=== PATIENT | female | born 1940 | race Caucasian/White ===

== ENCOUNTER 2019-07-29 07:22 | Inpatient (IN) ==
[2019-07-29] MEDS ORDERED: 0.9 % Sodium Chloride 1,000 ML ONE ×3 (08:23→13:27)
[2019-07-29 08:39] LABS: INR 2.4; Prothrombin Time 27.7 Seconds (9.4-12.1)
[2019-07-29] MEDS ORDERED: Ondansetron 4 MG/2 ML VIAL ONE (10:54)
[2019-07-29] MEDS ORDERED: Heparin 1,000 UNITS/500 mL 1,000 ML ONE (10:57)
[2019-07-29] MEDS ORDERED: *HR* Heparin 10,000 UNIT/10 ML VIAL ONE (10:57)
[2019-07-29] MEDS ORDERED: Heparin 1,000 UNITS/500 mL 500 ML ONE (11:02)
[2019-07-29] MEDS ORDERED: *HR* FentaNYL (PF) 100 MCG/2 ML VIAL ONE (11:21)
[2019-07-29] MEDS ORDERED: *HR* Promethazine 25 MG/ML VIAL IVP PRN (11:28)
[2019-07-29] MEDS ORDERED: *HR* OxyCODONE Immed Rel 5 MG TABLET PO PRN (11:28)
[2019-07-29] MEDS ORDERED: Ondansetron 4 MG/2 ML VIAL IVP ONE (11:28)
[2019-07-29] MEDS ORDERED: *HR* Metoprolol 5 MG/5 ML VIAL IVP PRN (11:28)
[2019-07-29] MEDS ORDERED: *HR* FentaNYL (PF) 100 MCG/2 ML VIAL IVP PRN (11:28)
[2019-07-29] MEDS ORDERED: Albuterol 2.5 MG/3 ML NEBULIZER IH PRN (11:28)
[2019-07-29] MEDS ORDERED: Protamine Sulfate 50 MG/5 ML VIAL IVP ONE (13:05)
[2019-07-29] MEDS ORDERED: Naloxone 0.4 MG/ML INJ IVP PRN (13:14)
[2019-07-29] MEDS ORDERED: tiZANidine 4 MG TABLET PO PRN (13:20)
[2019-07-29] MEDS ORDERED: NON-FORMULARY MEDICATION 1 EACH EACH (Alendronate Sodium [Fosamax] 70 MG) PO SCH (13:30)
[2019-07-29] MEDS: 0.9 % Sodium Chloride 1,000 ML IVC SCH (14:39)
[2019-07-29] MEDS: hydrALAZINE 25 MG TABLET PO SCH ×2 (16:54→20:16)
[2019-07-29] MEDS ORDERED: *HR* Warfarin 5 MG TABLET PO SCH (18:00)
[2019-07-29] MEDS: *HR* Metformin 500 MG TABLET PO SCH (18:27)
[2019-07-29] MEDS: Metoprolol 100 MG TABLET PO SCH (20:17)
[2019-07-29] MEDS ORDERED: RED YEAST RICE 600 MG PO SCH (21:00)
[2019-07-30 02:25] LABS: Hematocrit 30.7 % (35.3-44.9); Hemoglobin 9.9 g/dL (11.5-15.4); Immature Granulocytes % 0.6 % (0-4); Lymphocytes # 0.5 K/mcL (0.6-4.6); Lymphocytes % 9.9 %; Mean Corpuscular HGB Conc 32.2 g/dL (31.6-35.5); Mean Corpuscular Hemoglobin 28.1 pg (28.0-33.3); Mean Corpuscular Volume 87.2 fL (83.0-100.0); Mean Platelet Volume 10.1 fL (9.4-12.4); Monocytes # 0.3 K/mcL (0.0-1.3); Monocytes % 6.5 %; Platelet Count 276 K/mcL (140-400); Red Blood Count 3.52 M/mcL (3.82-4.97); Red Cell Distribution Width 15.9 % (11.5-14.5); White Blood Count 4.8 K/mcL (4.3-11.1)
[2019-07-30 02:28] LABS: INR 2.3
[2019-07-30 02:42] LABS: BUN/Creatinine Ratio 18 (6-26); Blood Urea Nitrogen 16 mg/dL (8-23); Calcium 8.4 mg/dL (8.6-10.3); Carbon Dioxide 27 mEq/L (23-29); Chloride 105 mEq/L (98-107); Glucose 140 mg/dL (70-105); Osmolality,Calculated 291 (280-300); Potassium 3.7 mEq/L (3.5-5.1); Sodium 139 mEq/L (136-145); eGFR For African Americans > 60 (> 60); eGFR For Non-African Americans > 60 (> 60)
[2019-07-30] MEDS ORDERED: *HR* Atropine Sulfate 1 MG/10 ML SYRINGE ONE (03:01)
[2019-07-30] MEDS: 0.9 % Sodium Chloride 1,000 ML IVC SCH (06:36)
[2019-07-30] MEDS: hydrALAZINE 25 MG TABLET PO SCH (08:26)
[2019-07-30] MEDS: Metoprolol 100 MG TABLET PO SCH (08:27)
[2019-07-30] MEDS: *HR* Metformin 500 MG TABLET PO SCH (08:27)
[2019-07-30 08:34] VITALS: BP 128/59
[2019-07-30] MEDS ORDERED: Lisinopril 20 MG TABLET PO SCH (09:00)
[2019-07-30] MEDS ORDERED: amLODIPine 5 MG TABLET PO SCH (09:00)
[2019-07-30] MEDS ORDERED: Vitamin E 200 UNIT (90MG) CAPSULE PO SCH (09:00)
[2019-07-30] MEDS ORDERED: Aspirin Enteric Coated 81 MG Tablet PO SCH (09:00)
[2019-07-30] MEDS ORDERED: Cyanocobalamin (B-12) 1,000 MCG TABLET PO SCH (09:00)
[2019-07-30] MEDS ORDERED: Cholecalciferol (D-3) 1,000 UNIT (25MCG) TABLET PO SCH (09:00)
[2019-07-30] MEDS ORDERED: Loratadine 10 MG TABLET PO SCH (09:00)
[2019-07-30 09:13] LABS: Hemoglobin 9.4 g/dL (11.5-15.4)
[2019-07-30] MEDS ORDERED: Ropivacaine/PF 0.5% 30 ML VIAL ONE (10:52)
[2019-07-30] MEDS ORDERED: EPHEDrine 50 MG/ML VIAL IVP ONE (11:25)
[2019-07-30] MEDS ORDERED: Lidocaine -MPF 4% 5 ML AMPUL INFILT ONE (11:25)
[2019-07-30] MEDS ORDERED: *HR* Propofol 200 MG/20 ML VIAL IVP ONE (11:25)
[2019-07-30] MEDS ORDERED: *HR* Succinylcholine 200 MG/10 ML VIAL IVP ONE (11:25)
[2019-07-30] MEDS ORDERED: Ondansetron 4 MG/2 ML VIAL IVP ONE (11:25)
[2019-07-30] MEDS ORDERED: *HR* Warfarin 2.5 MG TABLET PO SCH (18:00)
[2019-07-30] MEDS ORDERED: Latanoprost 2.5 ML BOTTLE BOTH EYES SCH (21:00)
== END 2019-07-30 11:26 | disposition home or self-care (01) | DRG 274 ==
LOC: INVDIALAB 07:22 → 2NNU 14:22
PROVIDERS: ADMIT Internal Medicine Clinical Cardiac Electrophysiology; ATTEND Internal Medicine Clinical Cardiac Electrophysiology

== ENCOUNTER 2021-11-27 10:35 | Inpatient (IN) ==
[2021-11-27] MEDS ORDERED: Naloxone 0.4 MG/ML INJ IVP PRN (13:02)
[2021-11-27] MEDS ORDERED: Ondansetron 4 MG/2 ML VIAL IVP PRN (13:02)
[2021-11-27] MEDS ORDERED: Isovue-370 500 ML BOTTLE IVP ONE (14:05)
[2021-11-27] MEDS: lisinopriL 20 MG TABLET PO SCH (14:41)
[2021-11-27] MEDS: Metoprolol 100 MG TABLET PO SCH ×2 (14:41→22:34)
[2021-11-27] MEDS: hydrALAZINE 25 MG TABLET PO SCH ×2 (14:42→20:50)
[2021-11-27] MEDS: Aspirin Enteric Coated 325 MG Tablet PO SCH (14:43)
[2021-11-27] MEDS ORDERED: Perflutren Lipid Microsphere 1.3 ML in 0.9 % Sodium Chloride 8.7 ML IVP PRN (16:04)
[2021-11-27] MEDS ORDERED: D5% in Water 1,000 ML IVC PRN (16:23)
[2021-11-27] MEDS ORDERED: *HR* Dextrose 50 % in Water (Syg) 50 ML SYRINGE IVP PRN (16:23)
[2021-11-27] MEDS ORDERED: Dextrose 4 GM Chewable Tablets PO PRN ×2 (16:23)
[2021-11-27 17:48] LABS: Estimated Average Glucose 117 mg/dl; Hemoglobin A1C 5.7 %
[2021-11-27] MEDS: Furosemide 20 MG/2 ML VIAL IVP SCH (18:10)
[2021-11-27] MEDS: Insulin LISPRO 300 UNITS/3 ML VIAL SUBQ SCH (18:14)
[2021-11-27] MEDS: Latanoprost 2.5 ML BOTTLE BOTH EYES SCH (20:50)
[2021-11-28] MEDS: Acetaminophen 325 MG TABLET PO PRN (03:00)
[2021-11-28 03:09] LABS: Basophils % 0.1 %; Eosinophils # 0.1 K/mcL (0.0-0.6); Eosinophils % 1.1 %; Hematocrit 32.2 % (35.3-44.9); Hemoglobin 10.5 g/dL (11.5-15.4); Immature Granulocytes % 0.4 % (0-4); Lymphocytes # 0.5 K/mcL (0.6-4.6); Lymphocytes % 6.9 %; Mean Corpuscular HGB Conc 32.6 g/dL (31.6-35.5); Mean Corpuscular Hemoglobin 29.4 pg (28.0-33.3); Mean Corpuscular Volume 90.2 fL (83.0-100.0); Mean Platelet Volume 9.6 fL (9.4-12.4); Monocytes # 0.7 K/mcL (0.0-1.3); Neutrophils # 6.2 K/mcL (1.6-8.9); Platelet Count 288 K/mcL (140-400); Red Blood Count 3.57 M/mcL (3.82-4.97); Red Cell Distribution Width 14.6 % (11.5-14.5); Segmented Neutrophils % 82.5 %; White Blood Count 7.5 K/mcL (4.3-11.1)
[2021-11-28 03:34] LABS: Calcium 9.3 mg/dL (8.6-10.3); Potassium 3.4 mEq/L (3.5-5.1)
[2021-11-28] MEDS: *HR* Enoxaparin 40 MG/0.4 ML SYRINGE SQ SCH (06:30)
[2021-11-28] MEDS: Gabapentin 300 MG CAPSULE PO SCH ×2 (06:30→08:04)
[2021-11-28] MEDS: Insulin LISPRO 300 UNITS/3 ML VIAL SUBQ SCH ×3 (08:02→16:34)
[2021-11-28] MEDS: Furosemide 20 MG/2 ML VIAL IVP SCH (08:02)
[2021-11-28] MEDS: lisinopriL 20 MG TABLET PO SCH (08:03)
[2021-11-28] MEDS: hydrALAZINE 25 MG TABLET PO SCH ×3 (08:03→20:06)
[2021-11-28] MEDS: Loratadine 10 MG TABLET PO SCH (08:03)
[2021-11-28] MEDS: Aspirin Enteric Coated 325 MG Tablet PO SCH (08:03)
[2021-11-28] MEDS: Metoprolol 100 MG TABLET PO SCH (08:03)
[2021-11-28] MEDS: Gabapentin 100 MG CAPSULE PO SCH ×2 (14:58→20:06)
[2021-11-28] MEDS: carvediloL 25 MG TABLET PO SCH (17:07)
[2021-11-28] MEDS: Latanoprost 2.5 ML BOTTLE BOTH EYES SCH (20:07)
[2021-11-29 03:43] LABS: Basophils % 0.1 %; Hematocrit 31.5 % (35.3-44.9); Hemoglobin 10.1 g/dL (11.5-15.4); Immature Granulocytes % 0.6 % (0-4); Lymphocytes # 0.5 K/mcL (0.6-4.6); Lymphocytes % 5.2 %; Mean Corpuscular HGB Conc 32.1 g/dL (31.6-35.5); Mean Corpuscular Hemoglobin 29.1 pg (28.0-33.3); Mean Corpuscular Volume 90.8 fL (83.0-100.0); Mean Platelet Volume 10.2 fL (9.4-12.4); Monocytes # 0.8 K/mcL (0.0-1.3); Monocytes % 9.3 %; Neutrophils # 7.6 K/mcL (1.6-8.9); Platelet Count 295 K/mcL (140-400); Red Blood Count 3.47 M/mcL (3.82-4.97); Red Cell Distribution Width 14.7 % (11.5-14.5); Segmented Neutrophils % 84.8 %
[2021-11-29 03:52] LABS: Calcium 8.8 mg/dL (8.6-10.3); Magnesium 1.2 mg/dL (1.6-2.6); Phosphorous 5.4 mg/dL (2.7-4.5); Potassium 4.1 mEq/L (3.5-5.1)
[2021-11-29] MEDS: *HR* Enoxaparin 40 MG/0.4 ML SYRINGE SQ SCH (05:26)
[2021-11-29] MEDS: Acetaminophen 325 MG TABLET PO PRN ×2 (05:26→21:51)
[2021-11-29] MEDS: Insulin LISPRO 300 UNITS/3 ML VIAL SUBQ SCH ×3 (07:18→15:38)
[2021-11-29] MEDS ORDERED: 0.9 % Sodium Chloride 500 ML IVC ONE ×2 (07:40→09:46)
[2021-11-29] MEDS: hydrALAZINE 25 MG TABLET PO SCH (08:03)
[2021-11-29] MEDS: Aspirin Enteric Coated 325 MG Tablet PO SCH (08:03)
[2021-11-29] MEDS: carvediloL 25 MG TABLET PO SCH ×2 (08:03→16:13)
[2021-11-29] MEDS: Loratadine 10 MG TABLET PO SCH (08:03)
[2021-11-29] MEDS: Gabapentin 100 MG CAPSULE PO SCH (08:03)
[2021-11-29] MEDS: amLODIPine 5 MG TABLET PO SCH (08:03)
[2021-11-29] MEDS ORDERED: Acetaminophen 325 MG TABLET PO ONE (09:43)
[2021-11-29] MEDS: 0.9 % Sodium Chloride 1,000 ML IVC SCH ×2 (12:33→20:50)
[2021-11-29] MEDS: Latanoprost 2.5 ML BOTTLE BOTH EYES SCH (20:09)
[2021-11-29] MEDS: *HR* Metoprolol 5 MG/5 ML VIAL IVP PRN (21:41)
[2021-11-29] MEDS ORDERED: *HR* Metoprolol 5 MG/5 ML VIAL IVP ONE (22:06)
[2021-11-29 23:48] LABS: Calcium 8.3 mg/dL (8.6-10.3); Magnesium 1.7 mg/dL (1.6-2.6); Phosphorous 4.4 mg/dL (2.7-4.5); Potassium 3.9 mEq/L (3.5-5.1)
[2021-11-30] MEDS ORDERED: Furosemide 20 MG/2 ML VIAL IVP ONE (00:02)
[2021-11-30] MEDS ORDERED: Magnesium Sulfate 1 GM/102 ML PIGGYBACK IVPB ONE (00:02)
[2021-11-30 03:08] LABS: Basophils % 0.1 %; Eosinophils % 0.1 %; Hematocrit 29.1 % (35.3-44.9); Hemoglobin 9.4 g/dL (11.5-15.4); Immature Granulocytes % 0.7 % (0-4); Lymphocytes # 0.6 K/mcL (0.6-4.6); Lymphocytes % 4.3 %; Mean Corpuscular HGB Conc 32.3 g/dL (31.6-35.5); Mean Corpuscular Hemoglobin 29.6 pg (28.0-33.3); Mean Corpuscular Volume 91.5 fL (83.0-100.0); Mean Platelet Volume 9.7 fL (9.4-12.4); Monocytes # 1.4 K/mcL (0.0-1.3); Monocytes % 10.6 %; Neutrophils # 11.5 K/mcL (1.6-8.9); Platelet Count 260 K/mcL (140-400); Red Blood Count 3.18 M/mcL (3.82-4.97); Red Cell Distribution Width 14.6 % (11.5-14.5); Segmented Neutrophils % 84.2 %
[2021-11-30 03:10] LABS: White Blood Count 13.6 K/mcL (4.3-11.1)
[2021-11-30 03:28] LABS: Calcium 8.1 mg/dL (8.6-10.3); Phosphorous 4.6 mg/dL (2.7-4.5); Potassium 3.9 mEq/L (3.5-5.1)
[2021-11-30] MEDS: Piperacillin/Tazobactam 3.375 GM in 0.9 % Sodium Chloride Mini Bag 100 ML IVPB SCH ×2 (05:00→15:51)
[2021-11-30] MEDS: *HR* Enoxaparin 30 MG/0.3 ML SYRINGE SQ SCH (05:01)
[2021-11-30] MEDS: Acetaminophen 325 MG TABLET PO PRN ×2 (05:01→08:11)
[2021-11-30 06:04] LABS: Bacteria,Urine Few per hpf (None-Few); Bilirubin,Urine Negative (Negative); Blood,Urine Small (Negative); Budding Yeast,Urine Few per hpf (None Seen); Clarity,Urine Ex.Turbid (Clear); Color,Urine Yellow (Yellow); Glucose,Urine (UA) Normal (Normal); Ketones,Urine Negative (Negative); Leukocyte Esterase,Urine Large (Negative); Mucus,Urine Few per lpf (None-Few); Nitrite,Urine Negative (Negative); Protein,Urine 50 mg/dL (Neg-Trace); Specific Gravity,Urine 1.021 (1.010-1.025); Squamous Epithelial Cell,Urine Few per hpf (None-Few); Urobilinogen,Urine Normal (Normal); WBC,Urine TNTC per hpf (0-3)
[2021-11-30] MEDS: carvediloL 25 MG TABLET PO SCH ×2 (08:10→15:47)
[2021-11-30] MEDS: Aspirin Enteric Coated 325 MG Tablet PO SCH (08:10)
[2021-11-30] MEDS: Loratadine 10 MG TABLET PO SCH (08:11)
[2021-11-30] MEDS: amLODIPine 5 MG TABLET PO SCH (08:11)
[2021-11-30] MEDS: *HR* Metoprolol 5 MG/5 ML VIAL IVP PRN ×2 (08:12→20:12)
[2021-11-30 12:02] LABS: Protein/Creatinine Ratio,Urine 0.81 mg/mg (0.00-0.20); Sodium, Urine 46.9 mEq/L
[2021-11-30] MEDS: Insulin LISPRO 300 UNITS/3 ML VIAL SUBQ SCH ×3 (12:40→15:51)
[2021-11-30 18:27] LABS: Uric Acid 7.1 mg/dL (2.3-7.6)
[2021-11-30] MEDS: Latanoprost 2.5 ML BOTTLE BOTH EYES SCH (20:12)
[2021-12-01] MEDS ORDERED: Melatonin 3 MG TABLET PO PRN (01:33)
[2021-12-01 05:27] LABS: Basophils % 0.2 %; Eosinophils # 0.1 K/mcL (0.0-0.6); Eosinophils % 0.4 %; Immature Granulocytes % 0.8 % (0-4); Lymphocytes # 0.7 K/mcL (0.6-4.6); Lymphocytes % 5.2 %; Mean Corpuscular HGB Conc 32.3 g/dL (31.6-35.5); Mean Corpuscular Hemoglobin 29.1 pg (28.0-33.3); Mean Corpuscular Volume 90.1 fL (83.0-100.0); Mean Platelet Volume 10.2 fL (9.4-12.4); Monocytes % 15.7 %; Platelet Count 270 K/mcL (140-400); Red Blood Count 3.44 M/mcL (3.82-4.97); Red Cell Distribution Width 14.6 % (11.5-14.5); Segmented Neutrophils % 77.7 %; White Blood Count 12.8 K/mcL (4.3-11.1)
[2021-12-01 06:16] LABS: Calcium 8.6 mg/dL (8.6-10.3); Magnesium 2.1 mg/dL (1.6-2.6); Phosphorous 3.2 mg/dL (2.7-4.5); Potassium 3.8 mEq/L (3.5-5.1)
[2021-12-01] MEDS: carvediloL 25 MG TABLET PO SCH ×2 (09:11→17:13)
[2021-12-01] MEDS: Loratadine 10 MG TABLET PO SCH (09:12)
[2021-12-01] MEDS: Aspirin Enteric Coated 325 MG Tablet PO SCH (09:12)
[2021-12-01] MEDS: Insulin LISPRO 300 UNITS/3 ML VIAL SUBQ SCH ×3 (09:13→16:48)
[2021-12-01] MEDS: *HR* Enoxaparin 30 MG/0.3 ML SYRINGE SQ SCH (09:47)
[2021-12-01] MEDS: Piperacillin/Tazobactam 3.375 GM in 0.9 % Sodium Chloride Mini Bag 100 ML IVPB SCH ×3 (09:47→17:05)
[2021-12-01] MEDS: Acetaminophen 325 MG TABLET PO PRN (09:50)
[2021-12-01] MEDS: 0.9 % Sodium Chloride 1,000 ML IVC SCH ×3 (11:00→13:57)
[2021-12-01] MEDS: carvediloL 6.25 MG TABLET PO SCH (17:17)
[2021-12-01] MEDS: Latanoprost 2.5 ML BOTTLE BOTH EYES SCH (21:05)
[2021-12-02] MEDS: Piperacillin/Tazobactam 3.375 GM in 0.9 % Sodium Chloride Mini Bag 100 ML IVPB SCH ×3 (00:48→16:48)
[2021-12-02 01:12] LABS: Basophils % 0.3 %; Eosinophils # 0.2 K/mcL (0.0-0.6); Eosinophils % 3.2 %; Hematocrit 27.2 % (35.3-44.9); Hemoglobin 8.9 g/dL (11.5-15.4); Immature Granulocytes % 0.7 % (0-4); Lymphocytes # 0.6 K/mcL (0.6-4.6); Lymphocytes % 8.3 %; Mean Corpuscular HGB Conc 32.7 g/dL (31.6-35.5); Mean Corpuscular Hemoglobin 30.1 pg (28.0-33.3); Mean Corpuscular Volume 91.9 fL (83.0-100.0); Mean Platelet Volume 10.1 fL (9.4-12.4); Monocytes # 1.2 K/mcL (0.0-1.3); Monocytes % 15.6 %; Neutrophils # 5.5 K/mcL (1.6-8.9); Platelet Count 253 K/mcL (140-400); Red Blood Count 2.96 M/mcL (3.82-4.97); Red Cell Distribution Width 14.6 % (11.5-14.5); Segmented Neutrophils % 71.9 %; White Blood Count 7.6 K/mcL (4.3-11.1)
[2021-12-02 01:37] LABS: Calcium 8.4 mg/dL (8.6-10.3); Phosphorous 3.3 mg/dL (2.7-4.5); Potassium 3.7 mEq/L (3.5-5.1)
[2021-12-02] MEDS: *HR* Enoxaparin 30 MG/0.3 ML SYRINGE SQ SCH (04:58)
[2021-12-02] MEDS: Acetaminophen 325 MG TABLET PO PRN ×2 (04:59→16:49)
[2021-12-02] MEDS: Insulin LISPRO 300 UNITS/3 ML VIAL SUBQ SCH ×3 (07:17→16:50)
[2021-12-02] MEDS: Loratadine 10 MG TABLET PO SCH (07:20)
[2021-12-02] MEDS: Aspirin Enteric Coated 325 MG Tablet PO SCH (07:21)
[2021-12-02] MEDS: carvediloL 6.25 MG TABLET PO SCH ×2 (07:21→16:49)
[2021-12-02] MEDS: Latanoprost 2.5 ML BOTTLE BOTH EYES SCH (20:04)
[2021-12-02] MEDS ORDERED: hydrOXYzine pamoate 25 MG CAPSULE PO PRN (22:24)
[2021-12-03] MEDS: Piperacillin/Tazobactam 3.375 GM in 0.9 % Sodium Chloride Mini Bag 100 ML IVPB SCH ×2 (00:33→07:41)
[2021-12-03 01:18] LABS: Basophils % 0.3 %; Eosinophils # 0.3 K/mcL (0.0-0.6); Eosinophils % 3.3 %; Hematocrit 29.9 % (35.3-44.9); Hemoglobin 9.6 g/dL (11.5-15.4); Immature Granulocytes % 1.1 % (0-4); Lymphocytes # 0.8 K/mcL (0.6-4.6); Mean Corpuscular HGB Conc 32.1 g/dL (31.6-35.5); Mean Corpuscular Hemoglobin 29.4 pg (28.0-33.3); Mean Corpuscular Volume 91.7 fL (83.0-100.0); Monocytes # 1.3 K/mcL (0.0-1.3); Monocytes % 17.7 %; Neutrophils # 5.1 K/mcL (1.6-8.9); Platelet Count 312 K/mcL (140-400); Red Blood Count 3.26 M/mcL (3.82-4.97); Red Cell Distribution Width 14.6 % (11.5-14.5); Segmented Neutrophils % 67.6 %; White Blood Count 7.5 K/mcL (4.3-11.1)
[2021-12-03 01:28] LABS: Magnesium 1.9 mg/dL (1.6-2.6); Phosphorous 2.4 mg/dL (2.7-4.5); Potassium 3.6 mEq/L (3.5-5.1)
[2021-12-03 01:30] LABS: % Iron Saturation 9 % (15-50); Iron 18 mcg/dL (50-170); Transferrin 142 mg/dL (203-362)
[2021-12-03 01:49] LABS: Ferritin 197 ng/mL (10-120)
[2021-12-03 01:52] LABS: Folate 19.5 ng/mL (3.0-16.0)
[2021-12-03] MEDS ORDERED: *HR* Labetalol 20 MG/4 ML SYRINGE IVP ONE (02:39)
[2021-12-03] MEDS: *HR* Enoxaparin 40 MG/0.4 ML SYRINGE SQ SCH ×2 (05:44→06:35)
[2021-12-03] MEDS: Aspirin Enteric Coated 325 MG Tablet PO SCH (07:42)
[2021-12-03] MEDS: carvediloL 6.25 MG TABLET PO SCH (07:42)
[2021-12-03] MEDS: Loratadine 10 MG TABLET PO SCH (07:42)
[2021-12-03] MEDS: Insulin LISPRO 300 UNITS/3 ML VIAL SUBQ SCH ×2 (07:46→10:33)
[2021-12-03 07:58] VITALS: TEMP 97.8
[2021-12-03] MEDS: Acetaminophen 325 MG TABLET PO PRN (10:30)
[2021-12-03 10:31] VITALS: BP 158/78; PULSE 97; O2SAT 100
== END 2021-12-03 15:54 | disposition home health service (06) | DRG 304 ==
LOC: 2NENU → SUATTDRO 11-29 14:50
PROVIDERS: ADMIT Internal Medicine; ATTEND Internal Medicine

== ENCOUNTER 2021-12-28 09:47 | Observation (INO) ==
[2021-12-28 10:28] LABS: Basophils % 0.2 %; Eosinophils % 0.2 %; Hematocrit 36.2 % (35.3-44.9); Hemoglobin 11.4 g/dL (11.5-15.4); Immature Granulocytes % 0.3 % (0-4); Lymphocytes # 0.6 K/mcL (0.6-4.6); Lymphocytes % 9.1 %; Mean Corpuscular HGB Conc 31.5 g/dL (31.6-35.5); Mean Corpuscular Hemoglobin 28.9 pg (28.0-33.3); Mean Corpuscular Volume 91.6 fL (83.0-100.0); Mean Platelet Volume 9.3 fL (9.4-12.4); Monocytes # 0.8 K/mcL (0.0-1.3); Monocytes % 11.4 %; Neutrophils # 5.2 K/mcL (1.6-8.9); Platelet Count 265 K/mcL (140-400); Red Blood Count 3.95 M/mcL (3.82-4.97); Segmented Neutrophils % 78.8 %; White Blood Count 6.6 K/mcL (4.3-11.1)
[2021-12-28 10:35] LABS: INR 1.3; Prothrombin Time 14.6 Seconds (9.4-12.1)
[2021-12-28 10:38] LABS: Activated Partial Thrombo Time 54.9 Seconds (26.0-36.0)
[2021-12-28 10:48] LABS: BUN/Creatinine Ratio 13 (6-26); Blood Urea Nitrogen 12 mg/dL (8-23); Calcium 9.3 mg/dL (8.6-10.3); Carbon Dioxide 30 mEq/L (23-29); Chloride 101 mEq/L (98-107); Glucose 120 mg/dL (70-105); Magnesium 1.2 mg/dL (1.6-2.6); Osmolality,Calculated 291 (280-300); Potassium 3.8 mEq/L (3.5-5.1); Sodium 140 mEq/L (136-145); eGFR For African Americans > 60 (> 60); eGFR For Non-African Americans 59 (> 60)
[2021-12-28 11:08] LABS: Thyroid Stimulating Hormone 0.582 mcIU/mL (0.340-5.600); Troponin I 0.05 ng/mL (< 0.04)
[2021-12-28] MEDS ORDERED: Magnesium Oxide 400 MG TABLET PO STA (11:11)
[2021-12-28] MEDS ORDERED: Naloxone 0.4 MG/ML INJ IVP PRN (11:24)
[2021-12-28] MEDS ORDERED: *HR* Metoprolol 5 MG/5 ML VIAL IVP ONE (11:53)
[2021-12-28] MEDS ORDERED: *HR* Heparin 5,000 UNIT/ML VIAL IVP ONE (11:55)
[2021-12-28] MEDS ORDERED: *HR* Heparin 5,000 UNIT/ML VIAL IVP PRN ×2 (11:55)
[2021-12-28] MEDS ORDERED: Heparin 25,000UNIT/250ML 1/2NS 25,000 UNIT/250 ML IV.SOLN IVC SCH (12:00)
[2021-12-28] MEDS ORDERED: carvediloL 6.25 MG TABLET PO SCH (13:11)
[2021-12-28] MEDS ORDERED: lisinopriL 10 MG TABLET PO SCH (13:15)
[2021-12-28] MEDS ORDERED: *HR* Metoprolol 5 MG/5 ML VIAL IVP PRN (13:45)
[2021-12-28] MEDS: *HR* Heparin 5,000 UNIT/ML VIAL SQ SCH ×2 (14:49→21:53)
[2021-12-28] MEDS: carvediloL 6.25 MG TABLET PO SCH (16:02)
[2021-12-28 17:40] LABS: Bacteria,Urine Few per hpf (None-Few); Bilirubin,Urine Negative (Negative); Blood,Urine Negative (Negative); Clarity,Urine Clear (Clear); Color,Urine Colorless (Yellow); Glucose,Urine (UA) Normal (Normal); Ketones,Urine 10 mg/dL (Negative); Leukocyte Esterase,Urine Moderate (Negative); Nitrite,Urine Negative (Negative); Protein,Urine Trace mg/dL (Neg-Trace); Specific Gravity,Urine 1.009 (1.010-1.025); Squamous Epithelial Cell,Urine Few per hpf (None-Few); Urobilinogen,Urine Normal (Normal); WBC,Urine 30-50 per hpf (0-3)
[2021-12-28] MEDS: Insulin LISPRO 300 UNITS/3 ML VIAL SUBQ SCH (18:21)
[2021-12-28] MEDS ORDERED: Latanoprost 2.5 ML BOTTLE BOTH EYES SCH (21:00)
[2021-12-28] MEDS ORDERED: Insulin LISPRO 300 UNITS/3 ML VIAL SUBQ SCH (21:00)
[2021-12-28] MEDS: Magnesium Oxide 400 MG TABLET PO SCH (21:50)
[2021-12-29 01:49] LABS: Hematocrit 32.2 % (35.3-44.9); Hemoglobin 10.5 g/dL (11.5-15.4); Mean Corpuscular HGB Conc 32.6 g/dL (31.6-35.5); Mean Corpuscular Hemoglobin 29.7 pg (28.0-33.3); Mean Platelet Volume 9.8 fL (9.4-12.4); Platelet Count 261 K/mcL (140-400); Red Blood Count 3.54 M/mcL (3.82-4.97); Red Cell Distribution Width 15.5 % (11.5-14.5); White Blood Count 6.8 K/mcL (4.3-11.1)
[2021-12-29 02:08] LABS: BUN/Creatinine Ratio 14 (6-26); Blood Urea Nitrogen 11 mg/dL (8-23); Calcium 8.9 mg/dL (8.6-10.3); Carbon Dioxide 30 mEq/L (23-29); Chloride 98 mEq/L (98-107); Glucose 104 mg/dL (70-105); Osmolality,Calculated 288 (280-300); Potassium 3.5 mEq/L (3.5-5.1); Sodium 139 mEq/L (136-145); eGFR For African Americans > 60 (> 60); eGFR For Non-African Americans > 60 (> 60)
[2021-12-29] MEDS: *HR* Heparin 5,000 UNIT/ML VIAL SQ SCH ×2 (06:12→13:28)
[2021-12-29] MEDS: Insulin LISPRO 300 UNITS/3 ML VIAL SUBQ SCH ×2 (08:31→11:24)
[2021-12-29] MEDS: carvediloL 6.25 MG TABLET PO SCH (08:33)
[2021-12-29] MEDS: Magnesium Oxide 400 MG TABLET PO SCH (08:33)
[2021-12-29] MEDS ORDERED: Aspirin Enteric Coated 325 MG Tablet PO SCH (09:00)
[2021-12-29] MEDS ORDERED: lisinopriL 10 MG TABLET PO SCH (09:00)
[2021-12-29] MEDS ORDERED: Acetaminophen 325 MG TABLET PO PRN (09:14)
[2021-12-29 11:10] VITALS: BP 123/56; PULSE 77; TEMP 97.2
[2021-12-29 15:02] VITALS: O2SAT 94
[2021-12-29] MEDS ORDERED: carvediloL 25 MG TABLET PO SCH (17:00)
== END 2021-12-29 16:25 | disposition home health service (06) ==
LOC: EMEROOARM 09:47 → 2NENU 09:47 → SUATTDRO 11:30 → 2NENU 12:47
PROVIDERS: ADMIT Student in an Organized Health Care Education/Training Program; ATTEND Internal Medicine